=== PATIENT | female | born 1950 | race African-American/Black ===

== ENCOUNTER 2016-09-29 18:12 | Emergency (ER) | payer MEDICARE ==
[~2016-09-29] VITALS: Ht 154.9 cm; Wt 52.6 kg
[~2016-09-29 18:12] MED LIST: ASPIR 8181 MG ORAL; ENALAPRIL MALEA20 MG ORAL; FERROUS SULFAT325 MG ORAL; LIPITOR40 MG ORAL; METFORMIN HCL500 M1 ORAL; NIFEDIPINE XL30 M1 ORAL; NORMODYNE200 MG ORAL; PLAVIX75 MG ORAL
[2016-09-29 18:23] VITALS: BP 165/69
[2016-09-29] MEDS ORDERED: METOPROLOL SUCC50 MG ORAL (18:23)
[2016-09-29] MEDS ORDERED: PANTOPRAZOLE SO40 MG ORAL (18:23)
[2016-09-29] MEDS ORDERED: HYDRALAZINE HC100 MG ORAL (18:23)
[2016-09-29] MEDS ORDERED: AMLODIPINE BESYL5 MG ORAL (18:23)
[2016-09-29] MEDS ORDERED: Solu-MEDROL 125mg Inj IVP ONE (18:30)
[2016-09-29] MEDS: Ipratropium 0.02% Inh Soln 2.5ml UD HHN SCH ×3 (18:33→19:40)
[2016-09-29] MEDS: Albuterol ud Inhalation HHN SCH ×3 (18:33→19:44)
[2016-09-29 19:15] LABS: BASOPHILS % (AUTO) 0.5 % (0.0-2.0); EOSINOPHILS % (AUTO) 2.8 % (0.0-3.0); LYMPHOCYTES % (AUTO) 13.9 % (20.0-45.0); MEAN CORPUSCULAR HEMOGLOBIN 28.6 PG (27.0-31.0); MEAN CORPUSCULAR HGB CONC 33.6 G/DL (32.0-36.0); MEAN CORPUSCULAR VOLUME 85 FL (80-99); MEAN PLATELET VOLUME 7.1 FL (6.5-10.1); MONOCYTES % (AUTO) 6.9 % (1.0-10.0); PLATELET COUNT 198 K/UL (150-450); RED BLOOD COUNT 3.46 M/UL (4.20-5.40); RED CELL DISTRIBUTION WIDTH 13.9 % (11.6-14.8); WHITE BLOOD COUNT 8.9 K/UL (4.8-10.8)
[2016-09-29 19:30] VITALS: BP 170/70
[2016-09-29 19:34] LABS: TROPONIN I < 0.30 ng/mL (<=0.30)
[2016-09-29 19:37] LABS: ALANINE AMINOTRANSFERASE 14 U/L (3-33); ALBUMIN/GLOBULIN RATIO 1.2 (1.0-2.7); ANION GAP 14 (5-15); ASPARTATE AMINO TRANSFERASE 17 U/L (5-40); CALCIUM 8.9 mg/dL (8.6-10.2); CARBON DIOXIDE 25 mEQ/L (20-30); CHLORIDE 103 mEQ/L (98-107); CREATININE 1.5 mg/dL (0.5-0.9); GLOMERULAR FILTRATION RATE 42.1 mL/min (>60); HEMOLYSIS 5; POTASSIUM 4.1 mEQ/L (3.4-4.9); SODIUM 142 mEQ/L (135-145); TOTAL PROTEIN 6.5 g/dL (6.6-8.7)
[2016-09-29 19:47] LABS: CKMB < 1.5 ng/mL (< 3.8)
[2016-09-29 20:00] LABS: APPEARANCE,URINE CLEAR; KETONES,URINE NEGATIVE (NEGATIVE); LEUKOCYTE ESTERASE ,URINE 1+ (NEGATIVE); NITRITE,URINE NEGATIVE (NEGATIVE); PH,URINE 6 (4.5-8.0); PROTEIN,URINE 1+ (NEGATIVE); UROBILINOGEN,URINE NORMAL MG/DL (0.0-1.0)
[2016-09-29 20:16] LABS: RBC,URINE 0-2 /HPF (0 - 2); WBC,URINE 0-2 /HPF (0 - 2)
[2016-09-29 20:17] LABS: BACTERIA,URINE OCCASIONAL /HPF; SQUAMOUS EPITHELIAL CELL,UR FEW /LPF (NONE/OCC)
[2016-09-29] MEDS ORDERED: LEVAQUIN750 MG ORAL (20:17)
[2016-09-29] MEDS ORDERED: ALBUTEROL SULF8.5 GM INH (20:17)
[2016-09-29] MEDS ORDERED: PREDNISONE20 MG ORAL (20:17)
[2016-09-29 20:30] VITALS: BP 155/74
--- NOTE | 2016-09-29 21:40 | Emergency Room Report ---
History of Present Illness General Chief Complaint: Dyspnea/Respdistress Source: Patient, EMS Present Illness HPI 66-year-old female presents to ED for evaluation. States that since this morning she's been short of breath. States trouble taking deep breaths. Denies chest pain. Denies fevers chills. States the last several days she's had a bad cough which is productive. Notes history of COPD but has not required an inhaler in many years. Denies sick contacts or recent travel. No other aggravating relieving factors. Denies any other associated symptom Allergies: Coded Allergies: CODEINE (Verified Allergy, Unknown, 09/24/15) PENICILLINS (Unverified Allergy, Unknown, 09/29/16) Patient History Past Medical History: DM, HTN, COPD, CVA/TIA Past Surgical History: none Pertinent Family History: none Social History: Denies: alcohol use, drug use, smoking Now: No Immunizations: UTD Reviewed Nursing Documentation: PMH: Agreed, PSxH: Agreed Nursing Documentation-PMH Past Medical History: No History, Except For Hx Hypertension: Yes Hx COPD: Yes Hx Diabetes: Yes Hx Cerebrovascular Accident: Yes - 06/2015 Review of Systems All Other Systems: negative except mentioned in HPI Physical Exam Vital Signs Date Time Temp Pulse Resp B/P Pulse Ox O2 Delivery O2 Flow Rate FiO2 09/29/16 18:13 98.8 92 18 164/70 99 Room Air Sp02 EP Interpretation: reviewed, normal General Appearance: no apparent distress, alert, GCS 15, non-toxic Head: normocephalic Eyes: bilateral eye PERRL, bilateral eye normal inspection ENT: normal ENT inspection Neck: normal inspection Respiratory: decreased breath sounds, wheezing Cardiovascular #1: regular rate, rhythm, no edema Gastrointestinal: normal inspection Rectal: deferred Genitourinary: no CVA tenderness Musculoskeletal: normal inspection Neurologic: alert, oriented x3, responsive, motor strength/tone normal, sensory intact, speech normal Psychiatric: normal inspection Skin: normal inspection Lymphatic: normal inspection Medical Decision Making Diagnostic Impression: Primary Impression: Atypical pneumonia ER Course Hospital Course 66-year-old female presents to ED complaining of cough, wheezing, SOB Differential diagnoses include: URI, bronchitis, asthma/COPD, pneumonia Clinical course Patient placed on stretcher. After initial history, physical exam reveals an elderly female in no acute distress. Bilateral TM unremarkable. No pharyngeal erythema. No tonsillar exudates. No lymphadenopathy. Decreased breath sounds with wheezing I ordered labs, IV fluids, neb treatments, EKG, chest x-ray. Labs reviewed-no leukocytosis, hemoglobin/hematocrit stable, electrolytes okay, trop ok EKG - NSR, no acute changes Chest x-ray shows no lobar infiltrate On reassessment patient states she feels better. because of the patient's age and risk factors and history of COPD we will treat with antibiotics Diagnosis - atypical pneumonia Stable and discharged home with prescriptions for albuterol, prednisone, Levaquin. Instructed to followup with PMD. Return to ED if symptoms recur or worsen Labs Test 09/29/16 18:48 09/29/16 18:59 White Blood Count 8.9 K/UL (4.8-10.8) Red Blood Count 3.46 M/UL (4.20-5.40) Hemoglobin 9.9 G/DL (12.0-16.0) Hematocrit 29.5 % (37.0-47.0) Mean Corpuscular Volume 85 FL (80-99) Mean Corpuscular Hemoglobin 28.6 PG (27.0-31.0) Mean Corpuscular Hemoglobin Concent 33.6 G/DL (32.0-36.0) Red Cell Distribution Width 13.9 % (11.6-14.8) Platelet Count 198 K/UL (150-450) Mean Platelet Volume 7.1 FL (6.5-10.1) Neutrophils (%) (Auto) 76.0 % (45.0-75.0) Lymphocytes (%) (Auto) 13.9 % (20.0-45.0) Monocytes (%) (Auto) 6.9 % (1.0-10.0) Eosinophils (%) (Auto) 2.8 % (0.0-3.0) Basophils (%) (Auto) 0.5 % (0.0-2.0) Sodium Level 142 mEQ/L (135-145) Potassium Level 4.1 mEQ/L (3.4-4.9) Chloride Level 103 mEQ/L (98-107) Carbon Dioxide Level 25 mEQ/L (20-30) Anion Gap 14 (5-15) Blood Urea Nitrogen 15 mg/dL (7-23) Creatinine 1.5 mg/dL (0.5-0.9) Estimat Glomerular Filtration Rate 42.1 mL/min (>60) Glucose Level 125 mg/dL (74-106) Lactic Acid Level 0.80 mmol/L (0.66-2.22) Calcium Level 8.9 mg/dL (8.6-10.2) Total Bilirubin 0.3 mg/dL (0.0-1.2) Aspartate Amino Transf (AST/SGOT) 17 U/L (5-40) Alanine Aminotransferase (ALT/SGPT) 14 U/L (3-33) Alkaline Phosphatase 73 U/L (35-104) Total Creatine Kinase 89 U/L (26-140) Creatine Kinase MB < 1.5 ng/mL (< 3.8) Creatine Kinase MB Relative Index Troponin I < 0.30 ng/mL (<=0.30) Pro-B-Type Natriuretic Peptide 1666 pg/mL (0-125) Total Protein 6.5 g/dL (6.6-8.7) Albumin 3.6 g/dL (3.5-5.2) Globulin 2.9 g/dL Albumin/Globulin Ratio 1.2 (1.0-2.7) Urine Color Pale yellow Urine Appearance Clear Urine pH 6 (4.5-8.0) Urine Specific Gillespie 1.005 (1.005-1.035) Urine Protein 1+ (NEGATIVE) Urine Glucose (UA) Negative (NEGATIVE) Urine Ketones Negative (NEGATIVE) Urine Occult Blood Negative (NEGATIVE) Urine Nitrite Negative (NEGATIVE) Urine Bilirubin Negative (NEGATIVE) Urine Urobilinogen Normal MG/DL (0.0-1.0) Urine Leukocyte Esterase 1+ (NEGATIVE) Urine RBC 0-2 /HPF (0 - 2) Urine WBC 0-2 /HPF (0 - 2) Urine Squamous Epithelial Cells Few /LPF (NONE/OCC) Urine Bacteria Occasional /HPF (NONE) (1) Bronchitis EKG Diagnostic Results Rate: normal Rhythm: NSR ST Segments: no acute changes ASA given to the pt in ED: No Rhythm Strip Diag. Results EP Interpretation: yes Rhythm: NSR, no PVC's, no ectopy Chest X-Ray Diagnostic Results EP Interpretation: Yes Findings: no consolidation, no effusion, no pneumothorax, no acute cardiopulmonary disease Number of Views: 1 Last Vital Signs Date Time Temp Pulse Resp B/P Pulse Ox O2 Delivery O2 Flow Rate FiO2 4/12/17 20:30 98.7 86 19 155/74 100 Room Air Status: improved Disposition: HOME, SELF-CARE Condition: Stable Scripts Prednisone* (PREDNISONE*) 20 Mg Tablet 40 MG ORAL DAILY, #10 TAB Prov: CELESTINE LUTZ M.D. 09/29/16 Albuterol Sulfate* (ALBUTEROL SULFATE MDI*) 8.5 Gm Hfa.aer.ad 2 PUFF INH Q6H, #1 EA 0 Refills Prov: CELESTINE LUTZ M.D. 09/29/16 Levofloxacin* (LEVAQUIN*) 750 Mg Tablet 750 MG ORAL DAILY for 5 Days, TAB Prov: CELESTINE LUTZ M.D. 09/29/16 Patient Instructions: Acute Bronchitis, [id number] CELESTINE LUTZ M.D. Sep 29, 2016 21:40
--- NOTE | 2016-09-30 14:22 | Diagnostic Imaging Report ---
Indication: SOB Technique: One view of the chest Comparison: 09/24/2015 Findings: The heart is upper limit of normal in size. Pleural spaces are clear. There is what is probably a percutaneous aortic valve prosthesis. Better aeration currently. Findings are otherwise unchanged Impression: No acute process
--- NOTE | 2016-10-04 22:42 | Cardiology Report ---
APPROVED REPORT EKG Measurement Heart [id number] Normal sinus rhythm Nonspecific T wave abnormality Abnormal ECG
== END 2016-09-29 20:30 | disposition home or self-care (01) ==
LOC: EDBD 18:12 → EMR 19:19
DX: J18.9 Pneumonia, unspecified organism (principal); E11.9 Type 2 diabetes mellitus without complications; J44.9 Chronic obstructive pulmonary disease, unspecified; I10 Essential (primary) hypertension; Z86.73 Personal history of transient ischemic attack (TIA), and cerebral infarction without residual deficits; Z88.6 Allergy status to analgesic agent; Z88.0 Allergy status to penicillin
CPT/HCPCS: 36415; 71010; 80053; 81003; 82550; 82553; 83605; 83880; 84484; 85025; 87040; 93005; 94640; 94664; 96360; 96374; 99284; J2930; J7040